=== PATIENT | female | born 1995 | race African-American/Black ===

== ENCOUNTER 2018-03-28 17:56 | Emergency (ER) | payer OTHER ==
[~2018-03-28] VITALS: Ht 170.2 cm; Wt 59.1 kg
[~2018-03-28 17:56] MED LIST: BENTYL10 MG PO; ZOFRAN ODT4 MG PO; birth control pill
[2018-03-28 19:27] LABS: CHLORIDE 106 mEq/L (99-109); POTASSIUM 3.9 mEq/L (3.7-5.4); SODIUM 140 mEq/L (136-147)
[2018-03-28 19:28] LABS: HEMATOCRIT 43.5 % (36.0-46.0); HEMOGLOBIN 14.5 G/DL (11.9-15.5); MCHC 33.3 G/DL (30.0-36.0); PLATELET COUNT 254 K/uL (156-360); RBC DIS.WIDTH-CV 11.5 % (11.8-14.6); RED BLOOD COUNT 5.18 M/uL (3.80-5.20); WHITE BLOOD COUNT 5.9 K/uL (4.1-10.2)
[2018-03-28 19:29] LABS: GLUCOSE 79 mg/dL (70-99)
[2018-03-28 19:33] LABS: CREATININE 0.8 mg/dL (0.6-1.3); GFR ESTIMATE (CALCULATED) > 59 mL/min/
[2018-03-28 19:34] LABS: UREA NITROGEN (BUN) 6 mg/dL (9-23)
[2018-03-28 19:39] LABS: TROP-I INTERPRETATION NEGATIVE; TROPONIN-I < 0.01 ng/mL (0.0-0.30)
[2018-03-28] MEDS ORDERED: ZOFRAN4 MG PO (22:07)
[2018-03-29 00:07] VITALS: BP 133/91
== END 2018-03-29 00:17 | disposition home or self-care (01) ==
LOC: EME 17:56
PROVIDERS: Emergency Medicine
DX: R07.9 Chest pain, unspecified (principal); R06.00 Dyspnea, unspecified; R00.2 Palpitations; R11.2 Nausea with vomiting, unspecified; R19.7 Diarrhea, unspecified; M79.602 Pain in left arm; Z79.3 Long term (current) use of hormonal contraceptives
CPT/HCPCS: 71046; 71275; 80048; 84484; 85027; 85379; 93005; 99281; 99285; J7030

== ENCOUNTER 2018-04-01 04:10 | Emergency (ER) | payer OTHER ==
[~2018-04-01] VITALS: Ht 170.2 cm; Wt 58.6 kg
[~2018-04-01 04:10] MED LIST changes: +ZOFRAN4 MG PO
[2018-04-01 05:38] LABS: BASOPHIL (%) 1.1 % (0-1); BASOPHIL COUNT 0.1 K/uL (0-0.1); EOSINOPHIL (%) 3.4 % (0-5); EOSINOPHIL COUNT 0.2 K/uL (0-0.3); HEMATOCRIT 41.4 % (36.0-46.0); HEMOGLOBIN 14.1 G/DL (11.9-15.5); IMMATURE GRANULOCYTE (%) 0.2 % (0.0-0.7); LYMPHOCYTE (%) 35.4 % (15-42); LYMPHOCYTE COUNT 2.3 K/uL (1.0-2.8); MCH 28.1 PG (29.0-34.0); MCHC 34.1 G/DL (30.0-36.0); MCV 82.6 FL (83-99); MONOCYTE (%) 7.1 % (3-12); MONOCYTE COUNT 0.5 K/uL (0-0.8); NEUTROPHIL (%) 52.8 % (45-76); NEUTROPHIL COUNT 3.4 K/uL (1.8-6.4); PLATELET COUNT 235 K/uL (156-360); RBC DIS.WIDTH-CV 11.3 % (11.8-14.6); RBC DIS.WIDTH-SD 33.7 % (39-53); RED BLOOD COUNT 5.01 M/uL (3.80-5.20); WHITE BLOOD COUNT 6.4 K/uL (4.1-10.2)
[2018-04-01 05:41] LABS: ALBUMIN 4.5 g/dL (3.2-4.8); CHLORIDE 103 mEq/L (99-109); POTASSIUM 3.7 mEq/L (3.7-5.4); SODIUM 138 mEq/L (136-147)
[2018-04-01 05:44] LABS: GLUCOSE 97 mg/dL (70-99); TOTAL PROTEIN 7.3 g/dL (6.4-8.3)
[2018-04-01 05:46] LABS: TOTAL BILIRUBIN 0.8 mg/dL (0.0-1.0)
[2018-04-01 05:47] LABS: ALKALINE PHOSPHATASE 76 IU/L (3-129); CREATININE 0.9 mg/dL (0.6-1.3); GFR ESTIMATE (CALCULATED) > 59 mL/min/
[2018-04-01 05:48] LABS: UREA NITROGEN (BUN) 7 mg/dL (9-23)
[2018-04-01 05:49] LABS: AST (GOT) 14 IU/L (2-34)
[2018-04-01 05:50] LABS: ALT (GPT) 9 IU/L (3-49)
[2018-04-01 05:51] LABS: LIPASE 35 U/L (1.0-51.0)
[2018-04-01 05:57] LABS: QUANTITATIVE HCG < 4.0 MIU/ML
[2018-04-01] MEDS ORDERED: PERCOCET 5/31 TABLET PO (06:46)
[2018-04-01] MEDS ORDERED: ZOFRAN4 MG PO (06:46)
[2018-04-01] MEDS ORDERED: LEVAQUIN750 MG PO (06:46)
[2018-04-01] MEDS ORDERED: FLAGYL500 MG PO (06:46)
[2018-04-01 06:57] LABS: APPEARANCE CLEAR ((CLEAR)); BILIRUBIN NEGATIVE; BLOOD LARGE; COLOR YELLOW ((YELLOW)); GLUCOSE (STRIP) NEGATIVE; KETONES NEGATIVE; LEUKOCYTES NEGATIVE; NITRITE NEGATIVE; PROTEIN (STRIP) NEGATIVE; SPECIFIC GRAVITY 1.031 (1.000-1.030); UROBILINOGEN 0.2 MG/DL (0.2-1.0)
[2018-04-01 07:02] LABS: BACTERIA NONE SEEN /HPF; EPITHELIAL CELLS RARE /HPF; MUCUS NONE SEEN /LPF; RED BLOOD CELLS TNTC /HPF (0-5); UCUL ADDED? YES; WHITE BLOOD CELLS 0-5 /HPF (0-5)
[2018-04-01 07:33] VITALS: BP 128/83
== END 2018-04-01 07:36 | disposition home or self-care (01) ==
LOC: EME 04:10
PROVIDERS: Emergency Medicine
DX: K52.9 Noninfective gastroenteritis and colitis, unspecified (principal); Z87.440 Personal history of urinary (tract) infections; Z83.79 Family history of other diseases of the digestive system
CPT/HCPCS: 74177; 80053; 81003; 83690; 84702; 85025; 87086; 93005; 99281; 99285; J1885; J2405; J7030